=== PATIENT | female | born 1945 | race African-American/Black ===

== ENCOUNTER 2016-09-02 08:35 | Day surgery (SDC) | payer BC ==
--- NOTE | ~2016-09-02 | EGD ---
EGD REPORT [facility] [address] [id number] NAME: ALEX WALSH : [birth year] [place] [facility] [place] [id number] AGE: 71 ADM/REG DATE : 09/02/16 MR#: [id number] REPORT SERV DATE: 09/02/16 DICTATED BY: LAQUITA JUAREZ DATE: 09/02/16 REPORT STATUS : Draft TRANSCRIBED BY: [facility] DATE: 09/02/16 End[facility] Center Patient Name: Alex Walsh Date of : 1945 Attending MD: LAQUITA JUAREZ MD Procedure Date No Time: 09/02/2016 Procedure: Colonoscopy Indications: Screening for colorectal malignant neoplasm Referring MD: NICHOLAS AVILA Medicines: Monitored Anesthesia Care Complications: No immediate complications. Procedure: Pre-Anesthesia Assessment: - ASA Grade Assessment: II - A patient with mild systemic disease. After I obtained informed consent, the scope was passed under direct vision. Throughout the procedure, the patient's blood pressure, pulse, and oxygen saturations were monitored continuously. The PCF [id number] was introduced through the anus and advanced to the terminal ileum, with identification of the appendiceal orifice and IC valve. The colonoscopy was performed without difficulty. The patient tolerated the procedure well. The quality of the bowel preparation was good. Findings: The digital rectal exam was normal. Pertinent negatives include no palpable rectal lesions. Multiple diverticula were found in the sigmoid colon. Hemorrhoids were found during retroflexion and were moderate. A sessile polyp was found in the ascending colon. The polyp was 5 mm in size. The polyp was removed with a cold biopsy forceps. Resection and retrieval were complete. The terminal ileum appeared normal. Impression: - Diverticulosis in the sigmoid colon. - Hemorrhoids. - One 5 mm polyp in the ascending colon. Resected and retrieved. Recommendation: - Patient has a contact number available for emergencies. The signs and symptoms of potential delayed complications were discussed with the patient. Return to normal activities tomorrow. Written discharge instructions were provided to the patient. - Regular diet. EGD REPORT [address] [address] NAME: ALEX WALSH : [birth year] [place] [facility] [place] [id number] AGE: 71 ADM/REG DATE : 09/02/16 MR#: [id number] REPORT SERV DATE: 09/02/16 DICTATED BY: LAQUITA JUAREZ DATE: 09/02/16 REPORT STATUS : Draft TRANSCRIBED BY: [employer] DATE: 09/02/16 - Continue present medications. - Repeat colonoscopy for surveillance based on pathology results. - Return to GI clinic PRN. Procedure Code(s): --- Professional --- 72250, Colonoscopy, flexible, proximal to splenic flexure; with biopsy, single or multiple Diagnosis Code(s): --- Professional --- K64.9, Unspecified hemorrhoids K57.30, Diverticulosis of large intestine without perforation or abscess without bleeding D12.2, Benign neoplasm of ascending colon Z12.11, Encounter for screening for malignant neoplasm of colon CPT copyright 2013 [employer]. All rights reserved. The codes documented in this report are preliminary and upon animal rides manager review may be revised to meet current compliance requirements. LAQIUTA JUAREZ MD 09/02/2016 11:30 AM This report has been signed electronically. Number of Addenda: 0 Note Initiated On: 09/02/2016 11:03 AM Scope Withdrawal Time 0 hours 7 minutes 54 seconds [id number] [place] [id number]
[~2016-09-02 08:35] MED LIST: AMARYL4 PO; GLUCPH PO; LIPITOR20 PO; LOTREL1 CA4 PO
== END 2016-09-02 23:59 | disposition home or self-care (01) ==
LOC: DMU 08:35
PROVIDERS: Internal Medicine Gastroenterology
PROC: 0DBK8ZZ Excision of Ascending Colon, Via Natural or Artificial Opening Endoscopic (ICD-10-PCS; principal; 2016-09-02 10:00)
DX: Z12.11 Encounter for screening for malignant neoplasm of colon (principal); D12.2 Benign neoplasm of ascending colon; K57.30 Diverticulosis of large intestine without perforation or abscess without bleeding; K64.9 Unspecified hemorrhoids; I10 Essential (primary) hypertension; E11.9 Type 2 diabetes mellitus without complications; E78.00 Pure hypercholesterolemia, unspecified; Z88.0 Allergy status to penicillin; Z79.84 Long term (current) use of oral hypoglycemic drugs; Z79.899 Other long term (current) drug therapy
CPT/HCPCS: 82962; 88305